=== PATIENT | male | born 1940 | race Caucasian/White ===

== ENCOUNTER 2024-02-28 14:12 | Observation (INO) ==
[2024-02-28 15:23] LABS: INR 1.07 (0.85-1.14)
[2024-02-28 15:25] LABS: Albumin 3.8 g/dL (3.2-5.2); Albumin/Globulin Ratio 1.2 (1-3); Creatinine, Serum 1.07 mg/dL (0.67-1.17); Globulin 3.3 g/dL (2-4); Potassium 4.3 mmol/L (3.5-5.0); Total Bilirubin 0.6 mg/dL (0.2-1.0); Total Protein 7.1 g/dL (6.4-8.9)
[2024-02-28] MEDS: Iohexol 350 (CONTRAST) 500 ML MDV IV ONE (15:54)
[2024-02-28 15:56] LABS: Hematocrit 42.6 % (38-53); Hemoglobin 14.2 g/dL (13.2-16.3); Mean Corpuscular Hemoglobin 30.6 pg (27-33); Mean Corpuscular Hgb Conc 33.3 g/dL (31-36); Mean Corpuscular Volume 91.9 fL (80-97); Red Blood Count 4.64 10^6/uL (4.06-5.63); Red Cell Distribution Width 13.4 % (12-17); White Blood Count 10.9 10^3/uL (3.6-10.2)
[2024-02-28 16:15] LABS: ABS Basophils 0.1 10^3/uL (0.0-0.1); ABS Eosinophils 0.1 10^3/uL (0.0-0.5); ABS Lymphocytes 1.2 10^3/uL (1.0-4.8); ABS Neutrophils 8.4 10^3/uL (1.5-7.6); ABS Nucleated RBC 0.08 10^3/ul; Eosinophil % 1.2 %; Lymphocyte % 11.2 %; Mean Platelet Volume 7.8 fL (7.5-11.2); Nucleated Red Blood Cells % 0.7 %/100WBC (0.0-0.8); Platelet Count 451 10^3/uL (150-450)
[2024-02-28 16:49] LABS: High Sensitivity Troponin 1 Hr 4 pg/mL (<20)
[2024-02-28] MEDS: Heparin DRIP 25,000 UNITS BAG 25,000 UNITS/250 ML BAG IV SCH (17:23)
[2024-02-28] MEDS: Heparin 5000 UNITS/ML 1 mL VIAL IV PRN (17:23)
[2024-02-28] MEDS ORDERED: Dextrose 50% Syringe 50 ml 25 GM/50 ML SYRINGE IV PUSH PRN (18:27)
[2024-02-28] MEDS ORDERED: Sulfur Hexaflouride MICROSPHR 25 MG VIAL IV PRN (18:30)
[2024-02-28 20:33] LABS: Magnesium 1.8 mg/dL (1.9-2.7)
[2024-02-29 05:17] LABS: Hematocrit 38.6 % (38-53); Mean Corpuscular Hemoglobin 30.7 pg (27-33); Mean Corpuscular Hgb Conc 33.6 g/dL (31-36); Mean Corpuscular Volume 91.4 fL (80-97); Mean Platelet Volume 6.8 fL (7.5-11.2); Platelet Count 371 10^3/uL (150-450); Red Blood Count 4.22 10^6/uL (4.06-5.63); Red Cell Distribution Width 13.4 % (12-17); White Blood Count 7.9 10^3/uL (3.6-10.2)
[2024-02-29 05:54] LABS: Calcium 8.4 mg/dL (8.6-10.3); Creatinine, Serum 1.01 mg/dL (0.67-1.17); Magnesium 1.8 mg/dL (1.9-2.7); Potassium 3.9 mmol/L (3.5-5.0); eGFR CKD-EPI 72.9 (>60)
[2024-02-29 07:12] LABS: ABS Basophils 0.1 10^3/uL (0.0-0.1); ABS Eosinophils 0.1 10^3/uL (0.0-0.5); ABS Lymphocytes 1.7 10^3/uL (1.0-4.8); ABS Monocytes 0.9 10^3/uL (0.0-1.1); ABS Neutrophils 5.1 10^3/uL (1.5-7.6); ABS Nucleated RBC 0.01 10^3/ul; Eosinophil % 0.8 %; Lymphocyte % 21.9 %; Nucleated Red Blood Cells % 0.1 %/100WBC (0.0-0.8); RBC Morphology Normal (Normal)
[2024-02-29] MEDS: Magnesium Sulfate 2 gm BAG 2 GM/50 ML BAG IVPB ONE (08:59)
[2024-02-29 09:25] VITALS: BP 147/85
[2024-02-29] MEDS: Influenza Vaccine *TRI* 2024-25* 0.5 ML SYRINGE IM ONE (12:31)
== END 2024-02-29 12:33 | disposition home or self-care (01) ==
LOC: ED 14:12 → EDHOLD 14:12 → SUATTDRO 17:24 → MED 18:23
PROVIDERS: ADMIT Student in an Organized Health Care Education/Training Program; ATTEND Internal Medicine